=== PATIENT | male | born 1990 | race Two or more races ===

== ENCOUNTER 2022-04-08 05:19 | Emergency (ER) | payer SELFPAY ==
[2022-04-08] MEDS ORDERED: Albuterol/Ipratropium 3.0-0.5 MG/3 ML Neb Soln NEB ONE (05:47)
[2022-04-08] MEDS ORDERED: predniSONE 20 MG Tab PO ONE (06:03)
== END 2022-04-08 06:55 | disposition home or self-care (01) ==
LOC: MW.ED 05:19
DX: J45.901 Unspecified asthma with (acute) exacerbation (principal); I10 Essential (primary) hypertension
CPT/HCPCS: 99284-25; A9270-GY; J7620-GY